=== PATIENT | male | born 1940 | race Caucasian/White ===

== ENCOUNTER 2018-08-07 15:27 | Inpatient (IN) | payer MEDICARE, OTHER ==
[2018-08-07] MEDS ORDERED: Diltiazem 25 MG/5 ML SDV ONE (16:08)
[2018-08-07 16:35] LABS: CHLORIDE,CL 108 mmol/L (98-107); SODIUM,NA 143 mmol/L (136-145)
--- NOTE | 2018-08-07 17:18 | EDM.PDOC ---
ED HPI GENERAL MEDICAL PROBLEM - General Chief Complaint: Cardiovascular Problem Time Seen by Provider: 08/07/18 15:40 Source of Information: Reports: Patient History Limitations: Reports: No Limitations - History of Present Illness INITIAL COMMENTS - FREE TEXT/NARRATIVE: Patient is a 78-year-old who is seen in clinic and referred to us secondary to shortness of breath and tachycardia patient states that he went to the [facility] for reports of cardiac stress test at this time it was noted that he was in atrial fibrillation with a rapid ventricular response 140-120 he was sent to the ER for evaluation at this time we reviewed his previous stress test which showed an ejection fracture was within normal limits for age no significant EKG changes no perfusion defects noted overall stress test was within normal limits start revealed pulmonary function home on a functions performed FEV1 69% with post treatment improved to 75% improvement chest x-ray was negative for any active disease Onset: Gradual Duration: Chronic Location: Reports: Chest Severity: Mild Worsens with: Reports: Movement (Activities such as walking stairs) Context: Reports: Other (Shortness of breath) Associated Symptoms: Reports: Cough, Shortness of Breath - Related Data Allergies Allergy/AdvReac Type Severity Reaction Status Date / Time No Known Allergies Allergy Verified 08/07/18 15:29 Home Meds: Home Meds Albuterol [Ventolin HFA] 1 - 2 puff INH Q4H 08/07/18 [History] Albuterol/Ipratropium [DuoNeb 3.0-0.5 MG/3 ML] 1 vial INH Q6H 08/07/18 [History] Aspirin [Lo-Dose Aspirin EC] 08/07/18 [History] Budesonide/Formoterol [Symbicort 160-4.5 MCG] 08/07/18 [History] Naproxen Sodium [Aleve] 1 - 2 tab PO Q12H 08/07/18 [History] Tamsulosin HCl 0.4 mg PO DAILY 08/07/18 [History] ED ROS GENERAL - Review of Systems Review Of Systems: See Below Constitutional: Reports: No Symptoms HEENT: Reports: No Symptoms Respiratory: Reports: Shortness of Breath, Cough Cardiovascular: Reports: Other (Atrial fibrillation ) Endocrine: Reports: No Symptoms GI/Abdominal: Reports: No Symptoms : Reports: No Symptoms Musculoskeletal: Reports: No Symptoms Skin: Reports: No Symptoms Neurological: Reports: No Symptoms Psychiatric: Reports: No Symptoms Hematologic/Lymphatic: Reports: No Symptoms ED EXAM, GENERAL - Physical Exam Exam: See Below Exam Limited By: No Limitations General Appearance: Alert, WD/WN, No Apparent Distress Ears: Normal External Exam, Normal Canal, Hearing Grossly Normal, Normal TMs Ear Exam: Bilateral Ear: Auricle Normal, Canal Normal, TM normal Nose: Normal Inspection, Normal Mucosa, No Blood Throat/Mouth: Normal Inspection, Normal Lips, Normal Teeth, Normal Gums, Normal Oropharynx, Normal Voice, No Airway Compromise Head: Atraumatic Neck: Normal Inspection, Supple, Non-Tender, Full Range of Motion Respiratory/Chest: Lungs Clear, Decreased Breath Sounds, Prolonged Expiration Cardiovascular: Irregularly Irregular GI/Abdominal: Normal Bowel Sounds (Male) Exam: Deferred Rectal (Males) Exam: Deferred Back Exam: Normal Inspection, Full Range of Motion, NT Extremities: Normal Inspection Neurological: Alert, Oriented, CN II-XII Intact, Normal Cognition, Normal Gait, Normal Reflexes, No Motor/Sensory Deficits Psychiatric: Normal Affect, Normal Mood Skin Exam: Warm, Dry, Intact, Normal Color, No Rash Lymphatic: No Adenopathy Course - Vital Signs Last Recorded V/S: Last Vital Signs Temp 97.7 F 08/08/18 07:57 Pulse 102 H 08/08/18 07:57 Resp 17 08/08/18 07:57 BP 138/86 08/08/18 07:57 Pulse Ox 100 08/08/18 07:57 - Orders/Labs/Meds Orders: Active Orders 24 hr Category Date Time Status Cardiac Monitoring [RC] Q2HR Care 08/07/18 15:34 Active EKG Documentation Completion [RC] ASDIRECTED Care 08/07/18 15:35 Active Chest 2V [CR] Stat Exams 08/07/18 15:34 Taken Sodium Chloride 0.9% [Saline Flush] Med 08/07/18 15:34 Active 10 ml FLUSH ASDIRECTED PRN Saline Lock Insert [OM.PC] Stat Oth 08/07/18 15:34 Ordered Medication Orders Albuterol/Ipratropium (Duoneb 3.0-0.5 Mg/3 Ml) 3 ml NEB Q4H PRN PRN Reason: Dyspnea Last Admin: 08/08/18 08:30 Dose: 3 ml Admin: 05/16/19 04:35 Dose: 3 ml Admin: 08/08/18 00:16 Dose: 3 ml Admin: 08/07/18 19:17 Dose: 3 ml Diltiazem HCl (Cardizem Cd) 180 mg PO DAILY [facility] Last Admin: 08/08/18 08:59 Dose: 180 mg Enoxaparin Sodium (Lovenox) 40 mg SUBCUT DAILY@20 [facility] Last Admin: 08/07/18 20:31 Dose: 40 mg Furosemide (Lasix) 40 mg IVPUSH DAILY [facility] Last Admin: 08/08/18 08:12 Dose: 40 mg Admin: 08/07/18 20:30 Dose: 40 mg Methylprednisolone Sodium Succinate (Solu-Medrol) 125 mg IVPUSH Q6H [facility] Last Admin: 08/08/18 08:59 Dose: 125 mg Sodium Chloride (Saline Flush) 10 ml FLUSH ASDIRECTED PRN PRN Reason: Keep Vein Open Last Admin: 08/08/18 08:16 Dose: 10 ml Admin: 08/07/18 22:13 Dose: 10 ml Admin: 08/07/18 20:31 Dose: 10 ml Tamsulosin HCl (Flomax) 0.4 mg PO BEDTIME [facility] Temazepam (Restoril) 15 mg PO BEDTIME PRN PRN Reason: Insomnia Last Admin: 08/08/18 00:16 Dose: 15 mg Tiotropium [place] (Spiriva Handihaler) 18 mcg INH DAILY [facility] Last Admin: 08/08/18 08:11 Dose: 1 inh Admin: 08/07/18 20:30 Dose: 1 inh Labs: Laboratory Tests 08/07/18 08/07/18 08/07/18 Range/Units 15:55 15:55 15:55 WBC 8.5 (4.0-10.2) K/uL RBC 4.38 (4.33-5.41) M/uL Hgb 14.7 (13.1-16.8) g/dL Hct 41.9 (39.0-49.0) % MCV 95.7 (84.0-98.0) fL MCH 33.6 H (28.2-33.3) pg MCHC 35.1 (31.7-36.0) g/dL RDW 13.5 (11.2-14.1) % Plt Count 176 (150-350) K/uL Neut % (Auto) 40.9 L (45.0-80.0) % Lymph % (Auto) 32.6 (10.0-50.0) % [place] % (Auto) 8.0 (2.0-14.0) % Eos % (Auto) 18.1 H (0.0-5.0) % Baso % (Auto) 0.4 (0.0-2.0) % Neut # (Auto) 3.47 (1.40-7.00) K/uL Lymph # (Auto) 2.77 (0.50-3.50) K/uL [place] # (Auto) 0.68 (0.00-1.00) K/uL Eos # (Auto) 1.54 H (0.00-0.50) K/uL Baso # (Auto) 0.03 (0.00-0.20) K/uL Sodium 143 (136-145) mmol/L Potassium 4.0 (3.5-5.1) mmol/L Chloride 108 H (98-107) mmol/L Carbon Dioxide 23.0 (21.0-32.0) mmol/L BUN 15 (7-18) mg/dL Creatinine 0.93 (0.51-1.17) mg/dL Est Cr Clr Drug Dosing 67.47 mL/min Estimated GFR (MDRD) > 60 mL/min Glucose 103 (74-106) mg/dL Calcium 8.7 (8.5-10.1) mg/dL Total Bilirubin 0.7 (0.2-1.0) mg/dL AST 16 (15-37) U/L ALT 25 (12-78) U/L Alkaline Phosphatase 63 (46-116) IU/L Troponin I 0.000 (0.000-0.056) ng/mL NT-Pro-B Natriuret Pep 1036 H Cancelled (0-125) pg/mL Total Protein 5.9 L (6.4-8.2) g/dL Albumin 3.2 L (3.4-5.0) g/dL Meds: Medications Generic Name Dose Route Start Last Admin Trade Name Freq PRN Reason Stop Dose Admin Albuterol/Ipratropium 3 ml 08/07/18 17:57 08/08/18 08:30 Duoneb 3.0-0.5 Mg/3 Ml NEB 3 ml Q4H PRN Administration Dyspnea Diltiazem HCl 180 mg 08/08/18 08:45 08/08/18 08:59 Cardizem Cd PO 180 mg DAILY [facility] Administration Enoxaparin Sodium 40 mg 08/07/18 20:00 08/07/18 20:31 Lovenox SUBCUT 40 mg DAILY@20 [facility] Administration Furosemide 40 mg 08/07/18 19:42 08/08/18 08:12 Lasix IVPUSH 40 mg DAILY [facility] Administration Methylprednisolone Sodium Succinate 125 mg 08/08/18 08:30 08/08/18 08:59 Solu-Medrol IVPUSH 125 mg Q6H [facility] Administration Sodium Chloride 10 ml 08/07/18 15:34 08/08/18 08:16 Saline Flush FLUSH 10 ml ASDIRECTED PRN Administration Keep Vein Open Tamsulosin HCl 0.4 mg 08/08/18 20:00 Flomax PO BEDTIME [facility] Temazepam 15 mg 08/07/18 20:03 08/08/18 00:16 Restoril PO 15 mg BEDTIME PRN Administration Insomnia Tiotropium [place] 18 mcg 08/07/18 19:43 08/08/18 08:11 Spiriva Handihaler INH 1 inh DAILY [facility] Administration Discontinued Medications Generic Name Dose Route Start Last Admin Trade Name Freq PRN Reason Stop Dose Admin Diltiazem HCl Confirm 08/07/18 16:08 08/07/18 16:13 Diltiazem Administered 08/07/18 16:09 25 mg Dose Administration 25 mg .ROUTE .STK-MED ONE Diltiazem HCl 120 mg 08/07/18 18:06 08/07/18 19:17 Cardizem Cd PO 08/07/18 18:07 120 mg ONETIME ONE Administration Diltiazem HCl 25 mg 08/07/18 21:52 08/07/18 22:13 Diltiazem IVPUSH 08/07/18 21:53 25 mg ONETIME ONE Administration Enoxaparin Sodium 40 mg 08/08/18 08:00 Lovenox SUBCUT DAILY [facility] Furosemide 40 mg 08/08/18 08:00 Lasix IVPUSH DAILY [facility] Tamsulosin HCl 0.4 mg 08/07/18 18:15 08/07/18 19:18 Flomax PO 0.4 mg DAILY [facility] Administration Tiotropium [place] 18 mcg 08/08/18 08:00 Spiriva Handihaler INH DAILY [facility] Umeclidinium/Vilanterol 62.5 mcg 08/08/18 08:00 Anoro Ellipta 62.5-25 Mcg IH DAILY [facility] Departure - Departure Time of Disposition: 17:35 Disposition: Admitted As Inpatient 64 Clinical Impression: Atrial fibrillation by electrocardiogram COPD (chronic obstructive pulmonary disease) Qualifiers: COPD type: COPD with acute exacerbation Qualified Code(s): J44.1 - Chronic obstructive pulmonary disease with (acute) exacerbation - Problem List & Annotations (1) Atrial fibrillation by electrocardiogram SNOMED Code(s): 624963286 Code(s): I48.91 - UNSPECIFIED ATRIAL FIBRILLATION Status: Acute Current Visit: Yes Annotation/Comment:: afib with rapid ventricular response ; ejection fracture within normal limits for age (2) COPD (chronic obstructive pulmonary disease) SNOMED Code(s): 77137739 Code(s): J44.9 - CHRONIC OBSTRUCTIVE PULMONARY DISEASE, UNSPECIFIED Status : Acute Current Visit: Yes Annotation/Comment:: chext x ray negative for any active disease. Qualifiers: COPD type: COPD with acute exacerbation Qualified Code(s): J44.1 - Chronic obstructive pulmonary disease with (acute) exacerbation - Problem List Review Problem List Initiated/Reviewed/Updated: Yes - My Orders Last 24 Hours: My Active Orders 08/07/18 15:34 Cardiac Monitoring [RC] Q2HR Chest 2V [CR] Stat Sodium Chloride 0.9% [Saline Flush] 10 ml FLUSH ASDIRECTED PRN Saline Lock Insert [OM.PC] Stat 08/07/18 15:35 EKG Documentation Completion [RC] ASDIRECTED - Assessment/Plan Admission H&P: Please use this note as an admission H&P Last 24 Hours: My Active Orders 08/07/18 15:34 Cardiac Monitoring [RC] Q2HR Chest 2V [CR] Stat Sodium Chloride 0.9% [Saline Flush] 10 ml FLUSH ASDIRECTED PRN Saline Lock Insert [OM.PC] Stat 08/07/18 15:35 EKG Documentation Completion [RC] ASDIRECTED Plan: Will be admitted for monitoring and referred to pulmonary medicine at [facility]
[2018-08-07] MEDS ORDERED: Diltiazem 120 MG Cap.CD PO ONE (18:06)
[2018-08-07] MEDS ORDERED: Tamsulosin 0.4 MG Cap.ER PO SCH (18:15)
[2018-08-07] MEDS: Albuterol/Ipratropium 3.0-0.5 MG/3 ML Neb Soln NEB PRN (19:17)
[2018-08-07] MEDS: Tiotropium Inhaler 18 MCG Inhalation Powder Cap Kit of 5 INH SCH (20:30)
[2018-08-07] MEDS: Furosemide 40 MG/4 ML VIAL IVPUSH SCH (20:30)
[2018-08-07] MEDS: Sodium Chloride 0.9% 10 ML Syringe FLUSH PRN ×2 (20:31→22:13)
[2018-08-07] MEDS: Enoxaparin 40 MG/0.4 ML Syringe SUBCUT SCH (20:31)
[2018-08-07] MEDS ORDERED: Diltiazem 25 MG/5 ML SDV IVPUSH ONE (21:52)
[2018-08-08] MEDS: Albuterol/Ipratropium 3.0-0.5 MG/3 ML Neb Soln NEB PRN ×6 (00:16→21:28)
[2018-08-08] MEDS: Temazepam 15 MG Cap PO PRN ×2 (00:16→21:24)
[2018-08-08 07:41] LABS: CHLORIDE,CL 107 mmol/L (98-107); SODIUM,NA 142 mmol/L (136-145)
[2018-08-08] MEDS ORDERED: Tiotropium Inhaler 18 MCG Inhalation Powder Cap Kit of 5 INH SCH (08:00)
[2018-08-08] MEDS ORDERED: Enoxaparin 40 MG/0.4 ML Syringe SUBCUT SCH (08:00)
[2018-08-08] MEDS ORDERED: Furosemide 40 MG/4 ML VIAL IVPUSH SCH (08:00)
[2018-08-08] MEDS ORDERED: Umeclidinium Brm/Vilanterol Tr 62.5-25 MCG 7 Puff Inhaler IH SCH (08:00)
[2018-08-08] MEDS: Tiotropium Inhaler 18 MCG Inhalation Powder Cap Kit of 5 INH SCH (08:11)
[2018-08-08] MEDS: Furosemide 40 MG/4 ML VIAL IVPUSH SCH (08:12)
[2018-08-08] MEDS: Sodium Chloride 0.9% 10 ML Syringe FLUSH PRN ×3 (08:16→21:26)
[2018-08-08] MEDS: methylPREDNISolone Sodium Succinate 125 MG/2 ML SDV IVPUSH SCH ×3 (08:59→21:24)
[2018-08-08] MEDS: Diltiazem 180 MG Cap.CD PO SCH (08:59)
--- NOTE | 2018-08-08 09:15 | PCM.PN ---
- General Info Date of Service: 08/08/18 - Review of Systems General: Reports: Weakness HEENT: Reports: No Symptoms Pulmonary: Reports: Shortness of Breath Cardiovascular: Reports: Dyspnea on Exertion. Denies: Chest Pain Gastrointestinal: Reports: No Symptoms Genitourinary: Reports: No Symptoms Musculoskeletal: Reports: No Symptoms Skin: Reports: No Symptoms Neurological: Reports: No Symptoms Psychiatric: Reports: No Symptoms - Patient Data Vitals - Most Recent: Last Vital Signs Temp 97.7 F 08/08/18 07:57 Pulse 102 H 08/08/18 07:57 Resp 17 08/08/18 07:57 BP 138/86 08/08/18 07:57 Pulse Ox 100 08/08/18 07:57 Weight - Most Recent: 195 lb 0.017 oz I&O - Last 24 Hours: Intake & Output 08/07/18 08/08/18 08/08/18 22:59 06:59 14:59 Intake Total 700 360 Output Total 500 Balance 200 360 Lab Results Last 24 Hours: Laboratory Results - last 24 hr 08/07/18 08/07/18 08/07/18 Range/Units 15:55 15:55 15:55 WBC 8.5 (4.0-10.2) K/uL RBC 4.38 (4.33-5.41) M/uL Hgb 14.7 (13.1-16.8) g/dL Hct 41.9 (39.0-49.0) % MCV 95.7 (84.0-98.0) fL MCH 33.6 H (28.2-33.3) pg MCHC 35.1 (31.7-36.0) g/dL RDW 13.5 (11.2-14.1) % Plt Count 176 (150-350) K/uL Neut % (Auto) 40.9 L (45.0-80.0) % Lymph % (Auto) 32.6 (10.0-50.0) % [place] % (Auto) 8.0 (2.0-14.0) % Eos % (Auto) 18.1 H (0.0-5.0) % Baso % (Auto) 0.4 (0.0-2.0) % Neut # (Auto) 3.47 (1.40-7.00) K/uL Lymph # (Auto) 2.77 (0.50-3.50) K/uL [place] # (Auto) 0.68 (0.00-1.00) K/uL Eos # (Auto) 1.54 H (0.00-0.50) K/uL Baso # (Auto) 0.03 (0.00-0.20) K/uL Sodium 143 (136-145) mmol/L Potassium 4.0 (3.5-5.1) mmol/L Chloride 108 H (98-107) mmol/L Carbon Dioxide 23.0 (21.0-32.0) mmol/L BUN 15 (7-18) mg/dL Creatinine 0.93 (0.51-1.17) mg/dL Est Cr Clr Drug Dosing 67.47 mL/min Estimated GFR (MDRD) > 60 mL/min Glucose 103 (74-106) mg/dL Calcium 8.7 (8.5-10.1) mg/dL Magnesium (1.8-2.4) mg/dL Total Bilirubin 0.7 (0.2-1.0) mg/dL AST 16 (15-37) U/L ALT 25 (12-78) U/L Alkaline Phosphatase 63 (46-116) IU/L Troponin I 0.000 (0.000-0.056) ng/mL NT-Pro-B Natriuret Pep 1036 H Cancelled (0-125) pg/mL Total Protein 5.9 L (6.4-8.2) g/dL Albumin 3.2 L (3.4-5.0) g/dL 08/08/18 08/08/18 08/08/18 Range/Units 06:45 06:45 06:45 WBC 7.9 (4.0-10.2) K/uL RBC 4.47 (4.33-5.41) M/uL Hgb 14.9 (13.1-16.8) g/dL Hct 43.0 (39.0-49.0) % MCV 96.2 (84.0-98.0) fL MCH 33.3 (28.2-33.3) pg MCHC 34.7 (31.7-36.0) g/dL RDW 13.5 (11.2-14.1) % Plt Count 182 (150-350) K/uL Neut % (Auto) 40.6 L (45.0-80.0) % Lymph % (Auto) 31.0 (10.0-50.0) % [place] % (Auto) 8.7 (2.0-14.0) % Eos % (Auto) 19.2 H (0.0-5.0) % Baso % (Auto) 0.5 (0.0-2.0) % Neut # (Auto) 3.22 (1.40-7.00) K/uL Lymph # (Auto) 2.46 (0.50-3.50) K/uL [place] # (Auto) 0.69 (0.00-1.00) K/uL Eos # (Auto) 1.52 H (0.00-0.50) K/uL Baso # (Auto) 0.04 (0.00-0.20) K/uL Sodium 142 (136-145) mmol/L Potassium 4.1 (3.5-5.1) mmol/L Chloride 107 (98-107) mmol/L Carbon Dioxide 25.3 (21.0-32.0) mmol/L BUN 14 (7-18) mg/dL Creatinine 1.02 (0.51-1.17) mg/dL Est Cr Clr Drug Dosing 61.27 mL/min Estimated GFR (MDRD) > 60 mL/min Glucose 98 (74-106) mg/dL Calcium 8.5 (8.5-10.1) mg/dL Magnesium 1.9 (1.8-2.4) mg/dL Total Bilirubin 0.9 (0.2-1.0) mg/dL AST 15 (15-37) U/L ALT 23 (12-78) U/L Alkaline Phosphatase 63 (46-116) IU/L Troponin I 0.005 (0.000-0.056) ng/mL NT-Pro-B Natriuret Pep 667 H (0-125) pg/mL Total Protein 5.9 L (6.4-8.2) g/dL Albumin 3.1 L (3.4-5.0) g/dL Med Orders - Current: Current Medications Albuterol/Ipratropium (Duoneb 3.0-0.5 Mg/3 Ml) 3 ml NEB Q4H PRN PRN Reason: Dyspnea Last Admin: 08/08/18 08:30 Dose: 3 ml Diltiazem HCl (Cardizem Cd) 180 mg PO DAILY [facility] Last Admin: 08/08/18 08:59 Dose: 180 mg Enoxaparin Sodium (Lovenox) 40 mg SUBCUT DAILY@20 [facility] Last Admin: 08/07/18 20:31 Dose: 40 mg Furosemide (Lasix) 40 mg IVPUSH DAILY [facility] Last Admin: 08/08/18 08:12 Dose: 40 mg Methylprednisolone Sodium Succinate (Solu-Medrol) 125 mg IVPUSH Q6H [facility] Last Admin: 08/08/18 08:59 Dose: 125 mg Sodium Chloride (Saline Flush) 10 ml FLUSH ASDIRECTED PRN PRN Reason: Keep Vein Open Last Admin: 08/08/18 08:16 Dose: 10 ml Tamsulosin HCl (Flomax) 0.4 mg PO BEDTIME [facility] Temazepam (Restoril) 15 mg PO BEDTIME PRN PRN Reason: Insomnia Last Admin: 08/08/18 00:16 Dose: 15 mg Tiotropium [place] (Spiriva Handihaler) 18 mcg INH DAILY [facility] Last Admin: 08/08/18 08:11 Dose: 1 inh Discontinued Medications Diltiazem HCl (Diltiazem) Confirm Administered Dose 25 mg .ROUTE .STK-MED ONE Stop: 08/07/18 16:09 Last Admin: 08/07/18 16:13 Dose: 25 mg Diltiazem HCl (Cardizem Cd) 120 mg PO ONETIME ONE Stop: 08/07/18 18:07 Last Admin: 08/07/18 19:17 Dose: 120 mg Diltiazem HCl (Diltiazem) 25 mg IVPUSH ONETIME ONE Stop: 08/07/18 21:53 Last Admin: 08/07/18 22:13 Dose: 25 mg Enoxaparin Sodium (Lovenox) 40 mg SUBCUT DAILY [facility] Furosemide (Lasix) 40 mg IVPUSH DA[facility] Tamsulosin HCl (Flomax) 0.4 mg PO DAILY [facility] Last Admin: 08/07/18 19:18 Dose: 0.4 mg Tiotropium [place] (Spiriva Handihaler) 18 mcg INH DAILY [facility] Umeclidinium/Vilanterol (Anoro Ellipta 62.5-25 Mcg) 62.5 mcg IH DAILY [facility] - Exam General: Alert, Oriented HEENT: Pupils Equal, Pupils Reactive, EOMI, Mucous Membr. Moist/[place] Neck: Supple Lungs: Wheezing (right side base ) Cardiovascular: Irregular Rhythm (controlled rate 100-110 ) GI/Abdominal Exam: Normal Bowel Sounds, Soft, Non-Tender, No Organomegaly, No Distention, No Abnormal Bruit, No Mass, Pelvis Stable (Male) Exam: Deferred Back Exam: Normal Inspection, Full Range of Motion Extremities: Normal Inspection, Normal Range of Motion, Non-Tender, No Pedal Edema, Normal Capillary Refill Skin: Warm, Dry, Intact Neurological: No New Focal Deficit Psy/Mental Status: Alert, Normal Affect, Normal Mood - Problem List & Annotations (1) Atrial fibrillation by electrocardiogram SNOMED Code(s): 390221528 Code(s): I48.91 - UNSPECIFIED ATRIAL FIBRILLATION Status: Acute Current Visit: Yes Annotation/Comment:: See plan (2) COPD (chronic obstructive pulmonary disease) SNOMED Code(s): 83508479 Code(s): J44.9 - CHRONIC OBSTRUCTIVE PULMONARY DISEASE, UNSPECIFIED Status : Acute Current Visit: Yes Qualifiers: COPD type: COPD with acute exacerbation Qualified Code(s): J44.1 - Chronic obstructive pulmonary disease with (acute) exacerbation Annotation/Comment:: See plan below. Solumedrol added to patient s care. - Problem List Review Problem List Initiated/Reviewed/Updated: Yes - My Orders Last 24 Hours: My Active Orders 08/07/18 15:34 Cardiac Monitoring [RC] Q2HR Chest 2V [CR] Stat Sodium Chloride 0.9% [Saline Flush] 10 ml FLUSH ASDIRECTED PRN Saline Lock Insert [OM.PC] Stat 08/07/18 15:35 EKG Documentation Completion [RC] ASDIRECTED 08/07/18 17:57 Bedrest Bathroom Privileges [RC] ASDIRECTED Up to Chair [RC] ASDIRECTED Albuterol/Ipratropium [DuoNeb 3.0-0.5 MG/3 ML] 3 ml NEB Q4H PRN Resuscitation Status Routine 08/07/18 17:58 Patient Status [ADT] Routine Oxygen Therapy [RC] 2300 VTE/DVT Education [RC] 2000 Vital Signs [RC] Q4HR 08/07/18 18:00 Intake and Output [RC] QSHIFT 08/07/18 18:05 RT Aerosol Therapy [RC] ASDIRECTED 08/07/18 18:06 EKG Documentation Completion [RC] 0511 08/07/18 18:08 RT Post Treatment Assessment [RC] Click to Edit RT Pre-Treatment Assessment [RC] Click to Edit 08/07/18 18:15 Aspirin [Halfprin] DOSE UNIT RTE FREQ Budesonide/Formoterol DOSE UNIT RTE FREQ 08/07/18 19:42 Furosemide [Lasix] 40 mg IVPUSH DAILY 08/07/18 19:43 Tiotropium [Spiriva HandiHaler] 18 mcg INH DAILY 08/07/18 20:00 Enoxaparin [Lovenox] 40 mg SUBCUT DAILY@20 08/07/18 20:03 Temazepam [Restoril] 15 mg PO BEDTIME PRN 08/07/18 Dinner [employer] Diet [DIET] 08/08/18 08:30 methylPREDNISolone Sod Succ [Solu-MEDROL] 125 mg IVPUSH Q6H 08/08/18 08:45 Diltiazem [Cardizem CD] 180 mg PO DAILY 08/08/18 20:00 Tamsulosin [Flomax] 0.4 mg PO BEDTIME - Plan Plan:: Today admitted last night with atrial fibrillation and shortness of breath doing better still short of breath discussed with [facility] possible transfer Dr. Valentin stated that he is being treated appropriately and did not require cardiology care at this time we will continue him with diltiazem. Treat his COPD I will refer him to cardiology for possible cardioversion. As an outpatient
[2018-08-08] MEDS ORDERED: Diltiazem 25 MG/5 ML SDV IVPUSH ONE (16:06)
[2018-08-08] MEDS: Formoterol/Mometasone 200-5 MCG 8.8 GM Inhaler IH SCH (21:21)
[2018-08-08] MEDS: Aspirin 81 MG Tab.Chew PO SCH (21:23)
[2018-08-08] MEDS: Tamsulosin 0.4 MG Cap.ER PO SCH (21:24)
[2018-08-08] MEDS: Enoxaparin 40 MG/0.4 ML Syringe SUBCUT SCH (21:27)
[2018-08-09] MEDS: Sodium Chloride 0.9% 10 ML Syringe FLUSH PRN ×3 (03:23→13:23)
[2018-08-09] MEDS: methylPREDNISolone Sodium Succinate 125 MG/2 ML SDV IVPUSH SCH ×2 (03:23→09:28)
[2018-08-09 07:55] LABS: CHLORIDE,CL 105 mmol/L (98-107); SODIUM,NA 140 mmol/L (136-145)
[2018-08-09] MEDS ORDERED: Aspirin 81 MG Tab.EC PO SCH (08:00)
[2018-08-09] MEDS ORDERED: Non-Formulary Medication 1 Each (Budesonide/Formoterol 2 PUFF) INH SCH (08:00)
[2018-08-09] MEDS: Formoterol/Mometasone 200-5 MCG 8.8 GM Inhaler IH SCH ×2 (09:27→19:10)
[2018-08-09] MEDS: Diltiazem 180 MG Cap.CD PO SCH (09:27)
[2018-08-09] MEDS: Tiotropium Inhaler 18 MCG Inhalation Powder Cap Kit of 5 INH SCH (09:28)
[2018-08-09] MEDS: Furosemide 40 MG/4 ML VIAL IVPUSH SCH (09:28)
[2018-08-09] MEDS ORDERED: Metoprolol Tartrate 5 MG/5 ML SDV IVPUSH ONE (12:28)
--- NOTE | 2018-08-09 12:56 | PCM.PN ---
- General Info Date of Service: 08/09/18 Functional Status: Reports: Tolerating Diet, Ambulating - Review of Systems General: Reports: No Symptoms HEENT: Reports: No Symptoms Pulmonary: Reports: Shortness of Breath (Improving) Cardiovascular: Reports: Palpitations Gastrointestinal: Reports: Constipation, Other Genitourinary: Reports: No Symptoms Musculoskeletal: Reports: No Symptoms Skin: Reports: No Symptoms Neurological: Reports: No Symptoms Psychiatric: Reports: No Symptoms - Patient Data Vitals - Most Recent: Last Vital Signs Temp 98.4 F 08/09/18 12:00 Pulse 123 H 08/09/18 12:00 Resp 17 08/09/18 12:00 BP 98/67 08/09/18 12:00 Pulse Ox 91 L 08/09/18 12:00 Weight - Most Recent: 195 lb 0.017 oz I&O - Last 24 Hours: Intake & Output 08/08/18 08/09/18 08/09/18 22:59 06:59 14:59 Intake Total 800 360 Balance 800 360 Lab Results Last 24 Hours: Laboratory Results - last 24 hr 08/09/18 08/09/18 Range/Units 07:05 07:05 WBC 13.5 H (4.0-10.2) K/uL RBC 4.62 (4.33-5.41) M/uL Hgb 15.3 (13.1-16.8) g/dL Hct 43.8 (39.0-49.0) % MCV 94.8 (84.0-98.0) fL MCH 33.1 (28.2-33.3) pg MCHC 34.9 (31.7-36.0) g/dL RDW 13.4 (11.2-14.1) % Plt Count 205 (150-350) K/uL Neut % (Auto) 86.7 H (45.0-80.0) % Lymph % (Auto) 12.3 (10.0-50.0) % [place] % (Auto) 0.9 L (2.0-14.0) % Eos % (Auto) 0.0 (0.0-5.0) % Baso % (Auto) 0.1 (0.0-2.0) % Neut # (Auto) 11.70 H (1.40-7.00) K/uL Lymph # (Auto) 1.66 (0.50-3.50) K/uL [place] # (Auto) 0.12 (0.00-1.00) K/uL Eos # (Auto) 0.00 (0.00-0.50) K/uL Baso # (Auto) 0.01 (0.00-0.20) K/uL Sodium 140 (136-145) mmol/L Potassium 4.0 (3.5-5.1) mmol/L Chloride 105 (98-107) mmol/L Carbon Dioxide 22.9 (21.0-32.0) mmol/L BUN 20 H (7-18) mg/dL Creatinine 1.02 (0.51-1.17) mg/dL Est Cr Clr Drug Dosing 61.27 mL/min Estimated GFR (MDRD) > 60 mL/min Glucose 153 H (74-106) mg/dL Calcium 8.4 L (8.5-10.1) mg/dL Total Bilirubin 0.7 (0.2-1.0) mg/dL AST 16 (15-37) U/L ALT 24 (12-78) U/L Alkaline Phosphatase 63 (46-116) IU/L Total Protein 6.3 L (6.4-8.2) g/dL Albumin 3.2 L (3.4-5.0) g/dL Med Orders - Current: Current Medications Albuterol/Ipratropium (Duoneb 3.0-0.5 Mg/3 Ml) 3 ml NEB Q4H PRN PRN Reason: Dyspnea Last Admin: 08/08/18 21:28 Dose: 3 ml Apixaban (Eliquis) 5 mg PO BID [facility] Aspirin (Aspirin) 81 mg PO BEDTIME [facility] Last Admin: 08/08/18 21:23 Dose: 81 mg Furosemide (Lasix) 40 mg IVPUSH DAILY [facility] Last Admin: 08/09/18 09:28 Dose: 40 mg Metoprolol Tartrate (Lopressor) 5 mg IVPUSH ONETIME ONE Stop: 08/09/18 12:29 Metoprolol Tartrate (Lopressor) 50 mg PO Q12H [facility] Mometasone Furoate/Formoterol Fumar (Dulera 200-5 Mcg) 2 puff IH Q12HR [facility] Last Admin: 08/09/18 09:27 Dose: 2 puff Prednisone (Prednisone) 20 mg PO BID [facility] Sodium Chloride (Saline Flush) 10 ml FLUSH ASDIRECTED PRN PRN Reason: Keep Vein Open Last Admin: 08/09/18 09:29 Dose: 10 ml Tamsulosin HCl (Flomax) 0.4 mg PO BEDTIME [facility] Last Admin: 08/08/18 21:24 Dose: 0.4 mg Temazepam (Restoril) 15 mg PO BEDTIME PRN PRN Reason: Insomnia Last Admin: 08/08/18 21:24 Dose: 15 mg Tiotropium [place] (Spiriva Handihaler) 18 mcg INH DAILY [facility] Last Admin: 08/09/18 09:28 Dose: 1 inh Discontinued Medications Aspirin (Halfprin) 81 mg PO DAILY [facility] Diltiazem HCl (Diltiazem) Confirm Administered Dose 25 mg .ROUTE .STK-MED ONE Stop: 08/07/18 16:09 Last Admin: 08/07/18 16:13 Dose: 25 mg Diltiazem HCl (Cardizem Cd) 120 mg PO ONETIME ONE Stop: 08/07/18 18:07 Last Admin: 08/07/18 19:17 Dose: 120 mg Diltiazem HCl (Diltiazem) 25 mg IVPUSH ONETIME ONE Stop: 08/07/18 21:53 Last Admin: 08/07/18 22:13 Dose: 25 mg Diltiazem HCl (Cardizem Cd) 180 mg PO DAILY [facility] Last Admin: 08/09/18 09:27 Dose: 180 mg Diltiazem HCl (Diltiazem) 25 mg IVPUSH ONETIME ONE Stop: 08/08/18 16:07 Last Admin: 08/08/18 16:26 Dose: 25 mg Enoxaparin Sodium (Lovenox) 40 mg SUBCUT DAILY [facility] Enoxaparin Sodium (Lovenox) 40 mg SUBCUT DAILY@20 [facility] Last Admin: 08/08/18 21:27 Dose: 40 mg Furosemide (Lasix) 40 mg IVPUSH DAILY [facility] Methylprednisolone Sodium Succinate (Solu-Medrol) 125 mg IVPUSH Q6H [facility] Last Admin: 08/09/18 09:28 Dose: 125 mg Non-Formulary Medication (Budesonide/Formoterol) 2 puff INH BID [facility] Tamsulosin HCl (Flomax) 0.4 mg PO DAILY [facility] Last Admin: 08/07/18 19:18 Dose: 0.4 mg Tiotropium [place] (Spiriva Handihaler) 18 mcg INH DAILY [facility] Umeclidinium/Vilanterol (Anoro Ellipta 62.5-25 Mcg) 62.5 mcg IH DAILY [facility] - Exam General: Alert, Oriented HEENT: Pupils Equal, Pupils Reactive, EOMI, Mucous Membr. Moist/[place] Neck: Supple Lungs: Clear to Auscultation, Normal Respiratory Effort Cardiovascular: Irregular Rhythm GI/Abdominal Exam: Normal Bowel Sounds, Soft, Non-Tender, No Organomegaly, No Distention, No Abnormal Bruit, No Mass, Pelvis Stable (Male) Exam: No Hernia, Deferred Back Exam: Normal Inspection, Full Range of Motion Extremities: Normal Inspection, Normal Range of Motion, Non-Tender, No Pedal Edema, Normal Capillary Refill Skin: Warm, Dry, Intact Neurological: No New Focal Deficit Psy/Mental Status: Alert, Normal Affect, Normal Mood - Problem List & Annotations (1) Atrial fibrillation by electrocardiogram SNOMED Code(s): 135770443 Code(s): I48.91 - UNSPECIFIED ATRIAL FIBRILLATION Status: Acute Current Visit: Yes Annotation/Comment:: At this time we'll change his diltiazem to metoprolol to see if this improves his heart rate was also supposed to request from subcutaneous Lovenox (2) COPD (chronic obstructive pulmonary disease) SNOMED Code(s): 18349883 Code(s): J44.9 - CHRONIC OBSTRUCTIVE PULMONARY DISEASE, UNSPECIFIED Status : Acute Current Visit: Yes Qualifiers: COPD type: COPD with acute exacerbation Annotation/Comment:: chext x ray negative for any active disease. At this time patient is on a laba and lama both her long-acting and as a rescue he is using DuoNeb's he was switched from IV Solu Medrol to prednisone by mouth in order to get him ready for discharge - Problem List Review Problem List Initiated/Reviewed/Updated: Yes - My Orders Last 24 Hours: My Active Orders 08/08/18 20:00 Aspirin 81 mg PO BEDTIME Mometasone/Formoterol [Dulera 200-5 MCG] 2 puff IH Q12HR Tamsulosin [Flomax] 0.4 mg PO BEDTIME 08/09/18 03:36 EKG Documentation Completion [RC] 0508/09/18 12:28 Metoprolol Tartrate [Lopressor] 5 mg IVPUSH ONETIME ONE 08/09/18 12:45 Metoprolol Tartrate [Lopressor] 50 mg PO Q12H 08/09/18 18:00 Apixaban [Eliquis] 5 mg PO BID predniSONE 20 mg PO BID 08/10/18 05:11 CBC WITH AUTO DIFF [HEME] AM CMP [COMPREHENSIVE METABOLIC PN,CMP] [CHEM] Q24H 08/11/18 05:11 CBC WITH AUTO DIFF [HEME] AM CMP [COMPREHENSIVE METABOLIC PN,CMP] [CHEM] Q24H - Plan Plan:: Today admitted last night with atrial fibrillation and shortness of breath doing better still short of breath discussed with [place] possible transfer Dr. Valentin stated that he is being treated appropriately and did not require cardiology care at this time we will continue him with diltiazem. Treat his COPD I will refer him to cardiology for possible cardioversion. As an outpatient
[2018-08-09] MEDS: Albuterol/Ipratropium 3.0-0.5 MG/3 ML Neb Soln NEB PRN ×2 (12:58→19:11)
[2018-08-09] MEDS: Apixaban 5 MG Tab PO SCH (19:11)
[2018-08-09] MEDS: Aspirin 81 MG Tab.Chew PO SCH (19:11)
[2018-08-09] MEDS: Tamsulosin 0.4 MG Cap.ER PO SCH (19:11)
[2018-08-09] MEDS: predniSONE 20 MG Tab PO SCH (19:11)
[2018-08-09] MEDS: Metoprolol Tartrate 50 MG Tab PO SCH (19:50)
[2018-08-10 07:43] LABS: CHLORIDE,CL 104 mmol/L (98-107); SODIUM,NA 137 mmol/L (136-145)
[2018-08-10] MEDS: Formoterol/Mometasone 200-5 MCG 8.8 GM Inhaler IH SCH (08:57)
[2018-08-10] MEDS: Apixaban 5 MG Tab PO SCH (08:58)
[2018-08-10] MEDS: Metoprolol Tartrate 50 MG Tab PO SCH (08:58)
[2018-08-10] MEDS: predniSONE 20 MG Tab PO SCH (08:58)
[2018-08-10] MEDS: Furosemide 40 MG/4 ML VIAL IVPUSH SCH (08:59)
[2018-08-10] MEDS: Tiotropium Inhaler 18 MCG Inhalation Powder Cap Kit of 5 INH SCH (08:59)
[2018-08-10] MEDS: Albuterol/Ipratropium 3.0-0.5 MG/3 ML Neb Soln NEB PRN (09:01)
--- NOTE | 2018-08-10 11:20 | PCM.DCSUM1 ---
Discharge Summary - Hospital Course Free Text/Narrative:: Patient is a 78-year-old gentleman who is seen in the ER with shortness of breath atrial fibrillation at that time we noticed that he had negative troponins we have noticed that his BNP was elevated his chest revealed no gradient abnormality we saw we reviewed his pulmonary function tests and stress test and felt that he had COPD so we went ahead and aggressively treated his A. fib and his respiratory distress patient feeling much better rate control will be sent home with appointment for Sunday at [place] [facility] Diagnosis: Stroke: No - Discharge Data Discharge Date: 08/10/18 Discharge Disposition: Home, Self-Care 01 Condition: Good - Discharge Diagnosis/Problem(s) (1) Atrial fibrillation by electrocardiogram SNOMED Code(s): 914092971 ICD Code: I48.91 - UNSPECIFIED ATRIAL FIBRILLATION Status: Acute Current Visit: Yes Problem Details: Patient doing well rate controlled we will send patient on a eliquis and Toprol see orders (2) COPD (chronic obstructive pulmonary disease) SNOMED Code(s): 60483872 ICD Code: J44.9 - CHRONIC OBSTRUCTIVE PULMONARY DISEASE, UNSPECIFIED Status : Acute Current Visit: Yes Problem Details: chext x ray negative for any active disease. At this time patient is on a laba and lama both her long-acting and as a rescue he is using DuoNeb's he was switched from IV Solu Medrol to prednisone by mouth in order to get him ready for discharge Patient doing much better we'll sent home on tapering prednisone may need to follow-up with pulmonology Qualifiers: COPD type: COPD with acute exacerbation - Patient Instructions Driving: Do Not Drive Showering/Bathing: May Shower - Discharge Plan *PRESCRIPTION DRUG MONITORING PROGRAM REVIEWED*: No *COPY OF PRESCRIPTION DRUG MONITORING REPORT IN PATIENT BÁRBARA: No Home Medications: Home Meds Albuterol [Ventolin HFA] 1 - 2 puff INH Q4H 08/07/18 [History] Albuterol/Ipratropium [DuoNeb 3.0-0.5 MG/3 ML] 1 vial INH Q6H 08/07/18 [History] Aspirin [Lo-Dose Aspirin EC] 1 tab PO DAILY 08/07/18 [History] Budesonide/Formoterol [Symbicort 160-4.5 MCG] 2 puff INH BID 08/07/18 [History] Naproxen Sodium [Aleve] 1 - 2 tab PO Q12H 08/07/18 [History] Tamsulosin HCl 0.4 mg PO DAILY 08/07/18 [History] Oxygen Therapy Mode: Room Air Patient Handouts: Diltiazem extended-release capsules or tablets, Furosemide tablets, Metoprolol tablets, Enoxaparin injection, Methylprednisolone Solution for Injection, Tiotropium respiratory inhalation spray (Spiriva Respimat), Formoterol; Mometasone metered dose inhaler, Albuterol; Ipratropium solution for inhalation, Prednisone tablets, Apixaban oral tablets, Atrial Fibrillation, [id number] Forms: ED Department Discharge Referrals: Elsi Stephen PA-C [Primary Care Provider] - - Discharge Summary/Plan Comment DC Time >30 min.: Yes - Patient Data Vitals - Most Recent: Last Vital Signs Temp 98.1 F 08/10/18 08:00 Pulse 86 08/10/18 08:58 Resp 18 08/10/18 08:00 BP 121/69 08/10/18 08:58 Pulse Ox 97 08/10/18 08:00 Weight - Most Recent: 195 lb 0.017 oz I&O - Last 24 hours: Intake & Output 08/09/18 08/10/18 08/10/18 22:59 06:59 14:59 Intake Total 360 Balance 360 Lab Results - Last 24 hrs: Laboratory Results - last 24 hr 08/10/18 08/10/18 Range/Units 06:52 06:52 WBC 17.5 H (4.0-10.2) K/uL RBC 4.26 L (4.33-5.41) M/uL Hgb 14.2 (13.1-16.8) g/dL Hct 41.2 (39.0-49.0) % MCV 96.7 (84.0-98.0) fL MCH 33.3 (28.2-33.3) pg MCHC 34.5 (31.7-36.0) g/dL RDW 13.6 (11.2-14.1) % Plt Count 201 (150-350) K/uL Neut % (Auto) 89.1 H (45.0-80.0) % Lymph % (Auto) 9.1 L (10.0-50.0) % [place] % (Auto) 1.7 L (2.0-14.0) % Eos % (Auto) 0.0 (0.0-5.0) % Baso % (Auto) 0.1 (0.0-2.0) % Neut # (Auto) 15.55 H (1.40-7.00) K/uL Lymph # (Auto) 1.59 (0.50-3.50) K/uL [place] # (Auto) 0.30 (0.00-1.00) K/uL Eos # (Auto) 0.00 (0.00-0.50) K/uL Baso # (Auto) 0.01 (0.00-0.20) K/uL Sodium 137 (136-145) mmol/L Potassium 4.3 (3.5-5.1) mmol/L Chloride 104 (98-107) mmol/L Carbon Dioxide 22.7 (21.0-32.0) mmol/L BUN 27 H (7-18) mg/dL Creatinine 1.03 (0.51-1.17) mg/dL Est Cr Clr Drug Dosing 60.67 mL/min Estimated GFR (MDRD) > 60 mL/min Glucose 122 H (74-106) mg/dL Calcium 8.5 (8.5-10.1) mg/dL Total Bilirubin 0.4 (0.2-1.0) mg/dL AST 22 (15-37) U/L ALT 38 (12-78) U/L Alkaline Phosphatase 55 (46-116) IU/L Total Protein 5.9 L (6.4-8.2) g/dL Albumin 3.1 L (3.4-5.0) g/dL Med Orders - Current: Current Medications Albuterol/Ipratropium (Duoneb 3.0-0.5 Mg/3 Ml) 3 ml NEB Q4H PRN PRN Reason: Dyspnea Last Admin: 08/10/18 09:01 Dose: 3 ml Apixaban (Eliquis) 5 mg PO BID [facility] Last Admin: 08/10/18 08:58 Dose: 5 mg Aspirin (Aspirin) 81 mg PO BEDTIME [facility] Last Admin: 08/09/18 19:11 Dose: 81 mg Furosemide (Lasix) 40 mg IVPUSH DAILY [facility] Last Admin: 08/10/18 08:59 Dose: 40 mg Metoprolol Tartrate (Lopressor) 50 mg PO Q12HR [facility] Last Admin: 08/10/18 08:58 Dose: 50 mg Mometasone Furoate/Formoterol Fumar (Dulera 200-5 Mcg) 2 puff IH Q12HR [facility] Last Admin: 08/10/18 08:57 Dose: 2 puff Prednisone (Prednisone) 20 mg PO BID [facility] Last Admin: 08/10/18 08:58 Dose: 20 mg Sodium Chloride (Saline Flush) 10 ml FLUSH ASDIRECTED PRN PRN Reason: Keep Vein Open Last Admin: 08/09/18 13:23 Dose: 10 ml Tamsulosin HCl (Flomax) 0.4 mg PO BEDTIME [facility] Last Admin: 08/09/18 19:11 Dose: 0.4 mg Temazepam (Restoril) 15 mg PO BEDTIME PRN PRN Reason: Insomnia Last Admin: 08/08/18 21:24 Dose: 15 mg Tiotropium [place] (Spiriva Handihaler) 18 mcg INH DAILY [facility] Last Admin: 08/10/18 08:59 Dose: 1 inh Discontinued Medications Aspirin (Halfprin) 81 mg PO DAILY [facility] Diltiazem HCl (Diltiazem) Confirm Administered Dose 25 mg .ROUTE .STK-MED ONE Stop: 08/07/18 16:09 Last Admin: 08/07/18 16:13 Dose: 25 mg Diltiazem HCl (Cardizem Cd) 120 mg PO ONETIME ONE Stop: 08/07/18 18:07 Last Admin: 08/07/18 19:17 Dose: 120 mg Diltiazem HCl (Diltiazem) 25 mg IVPUSH ONETIME ONE Stop: 08/07/18 21:53 Last Admin: 08/07/18 22:13 Dose: 25 mg Diltiazem HCl (Cardizem Cd) 180 mg PO DAILY [facility] Last Admin: 08/09/18 09:27 Dose: 180 mg Diltiazem HCl (Diltiazem) 25 mg IVPUSH ONETIME ONE Stop: 08/08/18 16:07 Last Admin: 08/08/18 16:26 Dose: 25 mg Enoxaparin Sodium (Lovenox) 40 mg SUBCUT DAILY [facility] Enoxaparin Sodium (Lovenox) 40 mg SUBCUT DAILY@20 [facility] Last Admin: 08/08/18 21:27 Dose: 40 mg Furosemide (Lasix) 40 mg IVPUSH DAILY [facility] Methylprednisolone Sodium Succinate (Solu-Medrol) 125 mg IVPUSH Q6H [facility] Last Admin: 08/09/18 09:28 Dose: 125 mg Metoprolol Tartrate (Lopressor) 5 mg IVPUSH ONETIME ONE Stop: 08/09/18 12:29 Last Admin: 08/09/18 13:20 Dose: 5 mg Non-Formulary Medication (Budesonide/Formoterol) 2 puff INH BID [facility] Tamsulosin HCl (Flomax) 0.4 mg PO DAILY [facility] Last Admin: 08/07/18 19:18 Dose: 0.4 mg Tiotropium [place] (Spiriva Handihaler) 18 mcg INH DAILY [facility] Umeclidinium/Vilanterol (Anoro Ellipta 62.5-25 Mcg) 62.5 mcg IH DAILY [facility]
== END 2018-08-10 12:25 | disposition home or self-care (01) | DRG 309 ==
LOC: LL.ED 15:27 → LL.MS 17:38
PROVIDERS: ADMIT Family Medicine; ATTEND Family Medicine
DX: I48.91 Unspecified atrial fibrillation (principal); J44.1 Chronic obstructive pulmonary disease with (acute) exacerbation; Z79.82 Long term (current) use of aspirin; Z79.899 Other long term (current) drug therapy
CPT/HCPCS: 36415; 71046; 80053; 83735; 83880; 84484; 85025; 93005; 94640; 96374; 99285-25; A9270-GY; J1650; J1940; J2930; J3490; J7620-GY

== ENCOUNTER 2024-09-11 07:30 | Day surgery (SDC) | payer MEDICARE, OTHER ==
[~2024-09-11 07:30] MED LIST: Midazolam 1 MG/ML 2 ML SDV ONE; Propofol 200 MG/20 ML SDV ONE
[2024-09-11] MEDS ORDERED: Sodium Chloride 0.9% 10 ML Syringe FLUSH PRN (08:00)
[2024-09-11] MEDS: Lactated Ringers 1,000 ML IV SCH (08:14)
[2024-09-11 10:09] VITALS: BP 116/63; PULSE 60
== END 2024-09-11 10:35 | disposition home or self-care (01) ==
LOC: LL.SDS 07:30
PROVIDERS: ATTEND Surgery
DX: K57.31 Diverticulosis of large intestine without perforation or abscess with bleeding (principal); K59.09 Other constipation; J44.9 Chronic obstructive pulmonary disease, unspecified; I48.91 Unspecified atrial fibrillation; F32.1 Major depressive disorder, single episode, moderate; N40.1 Benign prostatic hyperplasia with lower urinary tract symptoms; E78.5 Hyperlipidemia, unspecified; Z79.01 Long term (current) use of anticoagulants; Z79.899 Other long term (current) drug therapy
CPT/HCPCS: J7120